=== PATIENT | female | born 1970 | race Caucasian/White ===

== ENCOUNTER → 2016-10-08 | Outpatient (CLI) | payer OTHER ==
--- NOTE | 2016-10-09 15:35 | XCELERA REPORT ---
[address] [address] Transthoracic Echocardiogram Report Name: EUGENE WILDER Age: 46 yrs Gender: Female : 1970 Patient Status: Outpatient Patient Location: Study Date: 10/08/2016 01:02 PM Height: 65 in Weight: 127 lb BSA: 1.6 m2 Procedure: A two-dimensional transthoracic echocardiogram with color flow and Doppler was performed. The study was technically difficult with many images being suboptimal in quality. The study was technically limited with all images being suboptimal in quality. Reason For Study: PALPITATIONS R00.2 History: PALPITATIONS R00.2. Ordering Physician: AQUILES GLOVER Performed By: Soo Hernandez Interpretation Summary The left ventricle is normal in size. There is normal left ventricular wall thickness. LV EF is > than 65% Left ventricular systolic function is normal. Doppler measurements suggest normal left ventricular diastolic function The left ventricular wall motion is normal. There is no thrombus. There is no ventricular septal defect visualized. The left atrial size is normal. The interatrial septum is intact with no evidence for an atrial septal defect. There is no evidence of mitral valve prolapse. There is no vegetation seen on the mitral valve. There is no mitral valve stenosis. There is a trace amount of mitral regurgitation There is no aortic valvular vegetation. There is no aortic valve stenosis There is no LVOT obstruction. No aortic regurgitation is present. There is no tricuspid stenosis. There is a trace amount of tricuspid regurgitation Right ventricular systolic pressure is normal. RVSP is 23 mm ofHg , witth RA mean of 5. There is no pulmonic valvular stenosis. There is no pulmonic valvular regurgitation. There is no pericardial effusion. MMode/2D Measurements \T\ Calculations RVDd: 2.7 cm LVIDd: 4.0 cm FS: 47.5 % Ao root diam: 2.3 cm IVSd: 0.83 cm LVIDs: 2.1 cm EDV(Teich): 70.9 ml LVPWd: 0.77 cmESV(Teich): 14.6 ml Ao root area: 4.1 cm2 EF(Teich): 79.4 % LVOT diam: 2.0 cm LVOT area: 3.1 cm2 Doppler Measurements \T\ Calculations MV E max ge: MV dec slope: Ao V2 max: LV V1 max P.5 cm/sec 367.4 cm/sec2 121.9 cm/sec 4.2 mmHg MV A max ge: MV dec time: Ao max PG: LV V1 max: 76.7 cm/sec 0.25 sec 5.9 mmHg 102.6 cm/sec MV E/A: 1.2 LUCIANO(V,D): 2.6 cm2 MR max ge: PA V2 max: TR max ge: 203.9 cm/sec 53.1 cm/sec 205.4 cm/sec MR max PG: PA max P.1 mmHg TR max P.6 mmHg 16.9 mmHg Left Ventricle The left ventricle is normal in size. There is normal left ventricular wall thickness. LV EF is > than 65%. Left ventricular systolic function is normal. Doppler measurements suggest normal left ventricular diastolic function. The left ventricular wall motion is normal. There is no thrombus. There is no ventricular septal defect visualized. Right Ventricle The right ventricle is normal in size and function. Atria The right atrium is normal in size. The left atrial size is normal. The interatrial septum is intact with no evidence for an atrial septal defect. Mitral Valve There is no evidence of mitral valve prolapse. There is no vegetation seen on the mitral valve. There is no mitral valve stenosis. There is a trace amount of mitral regurgitation. Aortic Valve There is no aortic valvular vegetation. There is no aortic valve stenosis. There is no LVOT obstruction. No aortic regurgitation is present. Tricuspid Valve There is no tricuspid stenosis. There is a trace amount of tricuspid regurgitation. Right ventricular systolic pressure is normal. RVSP is 23 mm ofHg , witth RA mean of 5. Pulmonic Valve There is no pulmonic valvular stenosis. There is no pulmonic valvular regurgitation. Great Vessels The aortic root is normal size. Effusions There is no pericardial effusion. : AQUILES GLOVER > Vanessa Vasquez
== END ==
LOC: SP 12:34
PROVIDERS: ATTEND Specialist
DX: R00.2 Palpitations (principal)
CPT/HCPCS: 93306